=== PATIENT | male | born 2005 | race Hispanic/Latino ===

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

== ENCOUNTER 2025-04-08 19:30 | Emergency (ER) | payer SELFPAY ==
[~2025-04-08] VITALS: Ht 172.7 cm; Wt 72.6 kg
[2025-04-08 20:13] VITALS: PULSE 97; RESP 20; TEMP 98.4; O2SAT 100
[2025-04-08] MEDS ORDERED: DOXYCYCLINE HY100 MG PO (20:14)
[2025-04-08] MEDS: ONDANSETRON HCL 4 MG ORAL DISINTEGRATING TAB PO ONE (20:23)
[2025-04-08] MEDS: METRONIDAZOLE 500 MG TAB PO ONE (20:23)
[2025-04-08] MEDS: CEFTRIAXONE 1 GM VIAL IM ONE (20:23)
[2025-04-08 20:49] LABS: LEUKOCYTE ESTERASE ,URINE TRACE (NEGATIVE); PROTEIN,URINE DIPSTICK NEGATIVE (NEGATIVE); URINE UROBILINOGEN 1 mg/dL (0.2 - 1)
[2025-04-08 20:52] LABS: EPITHELIAL CELLS,URINE RARE /LPF; WBC,URINE (MAN) >50 /HPF (0-5)
== END 2025-04-08 21:15 | disposition home or self-care (01) ==
LOC: ER 19:33
DX: R30.0 Dysuria (principal); A64 Unspecified sexually transmitted disease; F17.290 Nicotine dependence, other tobacco product, uncomplicated
CPT/HCPCS: 81001; 87086; 99283; J0696; Q0162

== ENCOUNTER 2025-05-03 11:43 | Emergency (ER) | payer SELFPAY ==
[~2025-05-03] VITALS: Ht 175.3 cm; Wt 81.6 kg
[~2025-05-03 11:43] MED LIST changes: +DOXYCYCLINE HY100 MG PO
[2025-05-03 12:05] VITALS: PULSE 93; RESP 18; TEMP 97.6; O2SAT 100
== END 2025-05-03 12:45 | disposition home or self-care (01) ==
LOC: ER 11:49 → EDBD 11:49 → ER 12:45
DX: S80.12XA Contusion of left lower leg, initial encounter (principal); Y04.0XXA Assault by unarmed brawl or fight, initial encounter; Y92.89 Other specified places as the place of occurrence of the external cause
CPT/HCPCS: 99282